=== PATIENT | male | born 1965 | race Caucasian/White ===

== ENCOUNTER 2018-07-06 06:01 | Day surgery (SDC) | payer OTHER ==
[2018-07-05 17:04] VITALS: BMI 39.5
[2018-07-06 06:41] LABS: #Basophils 0.1 thou/uL (0.0-0.2); #Eosinphils 0.1 thou/uL (0.0-0.7); #Lymphocytes 3.5 thou/uL (1.20-3.40); #Monocytes 0.7 thou/uL (0.11-0.59); #Neutrophils 6.4 thou/uL (1.40-6.50); %Basophils 0.9 % (0.0-1.0); %Eosinophils 1.4 % (0.0-10.0); %Lymphocytes 32.2 % (21.0-51.0); %Monocytes 6.5 % (0.0-10.0); Hemoglobin 13.9 g/dL (14.0-18.0); Mean Corpuscular HGB CONC 34.4 g/dL (32.0-36.0); Mean Corpuscular Hemoglobin 31.2 pg (27.0-31.0); Mean Corpuscular Volume 90.9 fL (78.0-98.0); Mean Platelet Volume 7.7 fL (7.4-10.4); Platelet Count 345 thou/uL (130-400); RBC Distribution Width 13.2 % (11.5-14.5); Red Blood Cell (RBC) Count 4.46 mill/uL (4.70-6.10); White Blood Cell (WBC) Count 10.8 thou/uL (4.8-10.8)
[2018-07-06] MEDS ORDERED: Midazolam HCl 2 mg/2 ml Vial ONE ×2 (06:45→06:52)
[2018-07-06] MEDS ORDERED: Fentanyl 250 MCG/5 ML VIAL ONE (06:45)
[2018-07-06] MEDS ORDERED: CEFAZOLIN/Water 2 GM/20 ML SYRINGE ONE (06:52)
[2018-07-06 06:58] LABS: Anion Gap 14 mmol/L (10-20); BUN (Urea Nitrogen) 26 mg/dL (8.4-25.7); Calc. Creatinine Clearance 146 mL/min (70-130); Calcium 9.4 mg/dL (7.8-10.44); Carbon Dioxide 22 mmol/L (22-29); Chloride 102 mmol/L (98-107); Estimated GFR-MDRD 86; Glucose 112 mg/dL (70-105); Potassium 3.4 mmol/L (3.5-5.1); Sodium 135 mmol/L (136-145)
[2018-07-06] MEDS ORDERED: Fentanyl 100 MCG/2 ML VIAL ONE ×3 (08:46→09:24)
--- NOTE | 2018-07-06 10:19 | OP ---
DATE OF PROCEDURE: 07/06/2018 SURGEON: Cirilo Mendoza M.D. BOX STACKER: Rossy Sheriff PROCEDURE: Left L4-5 microdiscectomy. PROCEDURE IN DETAIL: The patient was brought to the operating room and intubated. He was rolled in the prone position on gel-filled chest rolls. Incision made exposing L4 and L5 on the left and our l evel was confirmed by x-ray. We performed left L4-5 hemilaminectomy, removed the yellow ligament, id entified the left L5 nerve root and beneath it was a bulging disc herniation which was removed in mul tiple fragments. A complete decompression of left L5 was achieved. The wound was extensively irriga marlin, immaculate hemostasis was secured. The wound was closed in anatomic layers.
[2018-07-06] MEDS ORDERED: Ondansetron HCl/PF 4 MG/2 ML Vial ONE (13:20)
[2018-07-06] MEDS ORDERED: PROPOFOL 200 MG/20 ML VIAL ONE (13:20)
[2018-07-06] MEDS ORDERED: PHENYLEPHRINE-NS 100 MCG/ML 10 ML SYRINGE ONE (13:20)
[2018-07-06] MEDS ORDERED: Dexamethasone 20 MG/5 ML VIAL ONE (13:20)
[2018-07-06] MEDS ORDERED: Lidocaine 1% PF 5 ML VIAL ONE (13:20)
[2018-07-06] MEDS ORDERED: ePHEDrine/0.9% NaCl/PF SYRINGE 50 mg/10 ml ONE (13:20)
[2018-07-06] MEDS ORDERED: Glycopyrrolate 0.2 MG/ML 5 ML SYRINGE ONE (13:20)
--- NOTE | 2018-07-09 20:42 | EKG ---
Test Reason : PREOP Blood Pressure : / mmHG Vent. Rate : 059 BPM Atrial Rate : 059 BPM P-R Int : 156 ms QRS Dur : 090 ms QT Int : 418 ms P-R-T Axes : 062 048 062 degrees QTc Int : 413 ms Sinus bradycardia Nonspecific T wave abnormality Abnormal ECG No previous ECGs available Confirmed by Maggy MENDIETA ([id number]) on 07/09/2018 8:42:18 PM Referred By: [email or web address] Confirmed By:Maggy MENDIETA
== END 2018-07-06 10:35 | disposition home or self-care (01) ==
LOC: SDC 06:01
PROVIDERS: ATTEND Neurological Surgery
PROC: 0SB20ZZ Excision of Lumbar Vertebral Disc, Open Approach (ICD-10-PCS; principal; 2018-07-06)
DX: M51.16 Intervertebral disc disorders with radiculopathy, lumbar region (principal); I10 Essential (primary) hypertension; K21.9 Gastro-esophageal reflux disease without esophagitis; Z79.899 Other long term (current) drug therapy
CPT/HCPCS: 36415; 76001; 80048; 85025; 93005; 93010; 96374; J1100; J2001; J2250; J2405; J2704; J3010; J3370

== ENCOUNTER 2023-05-02 12:26 | Outpatient (CLI) | payer MEDICARE ==
[~2023-05-02 12:26] MED LIST: Magnevist 469MG/ML 20 ML VIAL ONE
== END 2023-05-02 12:27 | disposition home or self-care (01) ==
LOC: BICMRI 12:26
PROVIDERS: ATTEND Family Medicine
DX: H53.8 Other visual disturbances (principal)
CPT/HCPCS: 70553

== ENCOUNTER 2024-04-11 12:29 | Outpatient (CLI) | payer MEDICARE | END 2024-04-11 12:30 | disposition home or self-care (01) | LOC: BICMRI 12:29 | PROVIDERS: ATTEND Psychiatry & Neurology Neurology | DX: G45.9 Transient cerebral ischemic attack, unspecified (principal); R47.01 Aphasia; J34.1 Cyst and mucocele of nose and nasal sinus; I65.02 Occlusion and stenosis of left vertebral artery | CPT/HCPCS: 70544; 70547; 70553 ==